=== PATIENT | female | born 1990 | race Caucasian/White ===

== ENCOUNTER → 2016-08-01 | Outpatient (CLI) | payer BC | LOC: LAB SRH 12:07 | DX: Z34.02 Encounter for supervision of normal first pregnancy, second trimester (principal) | CPT/HCPCS: 90074; 90495; 90496; 90498; 91493 ==

== ENCOUNTER 2016-08-15 13:11 | Outpatient (CLI) | payer BC ==
--- NOTE | 2016-08-15 14:37 | DIAGNOSTIC IMAGING REPORT ---
PROCEDURE: US OB DETAILED ANATOMIC INDICATION: ANATOMY TECHNIQUE: Warner scale, color, and spectral Doppler images of the second trimester gravid uterus were obtained. COMPARISON: None. FINDINGS: A single living intrauterine is in breech presentation. There is regular cardiac activity at a rate of 147 beats per minute. The placenta is posterior fundal and away from the internal cervical os. The cervix is closed measuring approximately 4.6 in length. The amniotic fluid volume is subjectively normal. Biparietal diameter 4 x 1 cm at 18 weeks and 3 days Head circumference 15.9 cm of 18 weeks and 5 days Abdominal circumference 13.4 cm at 18 weeks and 6-day Femur length 2.9 cm of 19 weeks and 0-day Head to abdominal circumference ratio and femur length to abdominal circumference ratios are normal. Estimated weight 265 g Composite gestational age 18 weeks and 5 days, RAVI 01/11/2017 There was visualization of a number of normal structures including the intracranial contents, nuchal region, spine, fluid-filled stomach, kidneys, abdomen, urinary bladder, upper and lower extremities, and genitals. A three- vessel umbilical cord, normal and placental cord insertion sites were seen. Due to the early gestational age the nose lips heart diaphragm and facial profile were not well seen. Recommend repeat scan in 2 weeks. IMPRESSION: 1. Single living intrauterine with a composite gestational age of 18 weeks and 5 days, RAVI 01/11/2017 2. nose lips heart diaphragm and facial profile were not well seen. Recommend repeat scan in 2 weeks.
== END 2016-08-15 23:00 ==
LOC: US SRH 13:11
DX: Z34.92 Encounter for supervision of normal pregnancy, unspecified, second trimester (principal); Z3A.18 18 weeks gestation of pregnancy

== ENCOUNTER 2016-08-29 15:20 | Outpatient (CLI) | payer BC ==
--- NOTE | 2016-08-29 16:37 | DIAGNOSTIC IMAGING REPORT ---
PROCEDURE: US OB RE-EVALUATION INDICATION: F/U ANATOMY TECHNIQUE: Warner scale, color and spectral Doppler images of the gravid uterus. COMPARISON: OB ultrasound 08/15/2016. FINDINGS: Single intrauterine with vertex presentation, posterior placenta without previa and heart rate 144 bpm. Normal closed cervix measures 4.2 cm. Facial profile, nose, lips, diaphragm and four-chamber heart views were visualized to complete the anatomic survey. Stomach, kidneys and bladder are unremarkable. BPD 4.9 cm, 20 weeks 5 days; head circumference 18.4 cm, 20 weeks 5 days; abdominal circumference 15.6 cm, 20-week 6-days; femur length 3.5 cm, 21 weeks. Composite age 20-week 6 days. RAVI 01/10/2017. IMPRESSION: 1. Single live intrauterine , vertex, 20 weeks 6-day 2. RAVI 01/10/2017, normal interval growth 3. Completion of normal anatomic survey.
== END 2016-08-29 23:00 | disposition home or self-care (01) ==
LOC: US SRH 15:20
DX: Z34.92 Encounter for supervision of normal pregnancy, unspecified, second trimester (principal); Z3A.20 20 weeks gestation of pregnancy

== ENCOUNTER 2016-10-24 11:27 | Outpatient (CLI) | payer BC | END 2016-10-24 23:00 | LOC: LAB SRH 11:27 | DX: Z34.02 Encounter for supervision of normal first pregnancy, second trimester (principal) | CPT/HCPCS: 90039; 90074; 91162; 91163 ==

== ENCOUNTER 2016-11-10 12:56 | Outpatient (CLI) | payer BC | END 2016-11-10 13:50 | disposition home or self-care (01) | LOC: OBC SRH 12:56 → NST SRH 12:56 → OB SRH 13:01 → NST SRH 13:50 | PROC: 4A0HXCZ Measurement of Products of Conception, Cardiac Rate, External Approach (ICD-10-PCS; principal; 2016-11-10) | DX: O24.419 Gestational diabetes mellitus in pregnancy, unspecified control (principal); Z3A.31 31 weeks gestation of pregnancy ==